=== PATIENT | female | born 1945 | race Caucasian/White ===

== ENCOUNTER 2020-02-09 10:49 | Inpatient (IN) | payer OTHER, MEDICARE, SELFPAY ==
[2020-02-09] VITALS (10 sets, daily range): BP systolic 94–167; BP diastolic 69–98; PULSE 101–144; RESP 16–26; TEMP 35.7–36.6; O2SAT 93–100; BMI 29.2
--- NOTE | ~2020-02-09 | CT_ITS ---
EXAMINATION: CTA chest PE protocol EXAM DATE: 02/09/2020 11:20 INDICATION: Pulmonary emboli. Shortness of breath. TECHNIQUE: Spiral CTA of the chest (pulmonary arteries) was performed with 100 cc Omnipaque 350 intr avenous contrast injection. Images were acquired during the pulmonary arterial phase. Coronal maxi mum intensity projection 3D-reconstructions were created by the technologist on dedicated workstation . Axial, coronal and sagittal reformatted images were reviewed. The dose-length product (DLP) for t his examination was 474.07 mGy-cm. The exposure was tailored according to patient size (auto mA exp osure control), and iterative reconstruction (ASIR) was used as additional dose reduction technique. There is no prior study for comparison. FINDINGS: There are bilateral interlobar and multiple segmental pulmonary emboli, overall moderate c lot burden with evidence of right heart strain. Small opacity in the upper middle lobe anterior segme nt which is peripheral wedge-shaped, consistent with small lung infarction. The lungs are otherwise c lear. No thoracic aortic dissection. There are no pleural or pericardial effusions. Tracheobronc hial tree is patent. There is no mediastinal, hilar or axillary lymphadenopathy. There is no pneu mothorax. Heart normal in size. No evidence of coronary arterial calcification. There are cholec ystectomy clips. There is mild thoracic spondylosis without osteoblastic or osteolytic lesions ident ified. IMPRESSION: 1. Scattered bilateral pulmonary emboli, moderate clot burden. 2. Small right upper lobe pulmonary infarction. I discussed pulmonary emboli with emergency room attending physician Maxi at 02/09/2020 11:23 CDT. Reviewed, dictated and finalized at location A.
--- NOTE | ~2020-02-09 | XR_ITS ---
EXAMINATION: XR chest 1V portable EXAM DATE: 02/09/2020 11:02 INDICATION: Left-sided chest pain, shortness of breath. History hypertension. TECHNIQUE: Portable AP frontal chest x-ray was obtained. Comparison is made to prior examination from 08/07/2016. FINDINGS: The lungs are clear. There are no pleural effusions. The cardiomediastinal silhouette is within normal limits. There is no pneumothorax suspected. Wide right acromioclavicular joint, could be postoperative. IMPRESSION: No acute cardiopulmonary findings. Reviewed, dictated and finalized at location A.
--- NOTE | ~2020-02-09 | US_ITS ---
EXAMINATION: US venous doppler [facility] EXAM DATE: 02/09/2020 12:43 INDICATION: Leg swelling. Pulmonary emboli. TECHNIQUE: Multiple grayscale, color flow and Doppler images of the left lower extremity deep venous system obtained and reviewed. Correlation is made to pulmonary CT earlier same date. FINDINGS: LEFT SIDE Common femoral: -------- Normal. Profunda femoral: ------- Normal. Femoral: Normal. Popliteal: Thrombosed. Posterior tibial: --------- Normal. Peroneal: Thrombosed. Gastrocnemius: Thrombosed. Soleus: Not visualized. Greater saphenous: ----- Normal. Lesser saphenous: ------ Not visualized. IMPRESSION: Positive for left popliteal, gastrocnemius, peroneal DVT. The finding of pulmonary emboli was already verbally conveyed as per documentation. Reviewed, dictated and finalized at location A. IMPRESSION: Positive for left popliteal, gastrocnemius, peroneal DVT. The finding of pulmonary emboli was already verbally conveyed as per documentat ion.
--- NOTE | 2020-02-09 10:55 | ECG_ITS ---
Measurements Intervals [place] Rate: 136 P: 96 HI: 183 QRS: 58 QRSD: 94 T: 76 QT: 363 QTc: 547 Interpretive Statements SINUS OR ECTOPIC ATRIAL TACHYCARDIA INCOMPLETE RIGHT BUNDLE BRANCH BLOCK DELAYED PRECORDIAL R/S TRANSITION MINIMAL Q WAVES- INFERIOR LEADS ST ABNORMALITY IN LATERAL LEADS- CONSIDER ISCHEMIA BASELINE ARTIFACT- II, III, AVL, AVF, V5 ABNORMAL ECG Electronically Signed On 02-09-2020 15:07:49 CDT by Narayan Black D.O.
[2020-02-09 11:10] LABS: Basophils Percent Auto 0.5 % (0.2-1.2); Eosinophils Absolute Auto 0.3 K/mm3 (0-0.3); Hematocrit 38.7 % (37.0-47.0); Immature Granulocyte Absolute 0.02 K/mm3 (0.00-0.031); Immature Granulocyte Percent A 0.3 % (0-0.5); Lymphocytes Absolute Auto 1.69 K/mm3 (0.9-3.2); Lymphocytes Percent Auto 23.2 % (18.3-44.2); Mean Corpuscular HGB Conc 33.6 g/dl (32-36); Mean Corpuscular Volume 86.2 fl (80-100); Mean Platelet Volume 9.9 fl (7.4-10.4); Monocytes Absolute Auto 0.4 K/mm3 (0.1-0.6); Monocytes Percent Auto 5.9 % (2.6-8.5); Neutrophils Absolute Auto 4.8 K/mm3 (1.3-6.7); Neutrophils Percent Auto 66.1 % (45.5-73.1); Platelet Count Result 170 k/mm3 (150-375); Red Blood Count 4.49 M/mm3 (4.2-5.4); Red Cell Distribution Width 13.7 % (11.5-14.5); White Blood Count 7.3 K/mm3 (4.5-10.0)
[2020-02-09 11:13] LABS: Estimated CRCL calculation 55 ml/min; Estimated Glomerular Filt Rate > 60
[2020-02-09 11:21] LABS: INR 1.2; Prothrombin Time 14.5 Seconds (11.1-14.7)
[2020-02-09 11:22] LABS: Partial Thromboplastin Time 28.8 SECONDS (22.3-36.8)
[2020-02-09 11:23] LABS: Alanine Aminotransferase 22 U/L (4-35); Albumin Level 4.7 g/dL (3.5-5.1); Alkaline Phosphatase 76 U/L (38-126); Anion Gap 11 mmol/L (8-16); Aspartate Amino Transferase 29 U/L (14-36); Bilirubin,Total 0.5 mg/dL (0.2-1.3); Blood Urea Nitrogen 22 mg/dL (7-17); Calcium 9.4 mg/dL (8.4-10.2); Carbon Dioxide 25 mmol/L (22-30); Chloride 105 mmol/L (98-107); Estimated CRCL calculation 61 ml/min; Estimated Glomerular Filt Rate > 60; Glucose 128 mg/dL (65-105); Sodium 141 mmol/L (137-145)
[2020-02-09] MEDS: HEPARIN SODIUM 5,000 UNITS/ML VIAL 5500 UNITS IV PUSH (11:31)
[2020-02-09 11:39] LABS: NT Pro B Type Natriuretic Pept 184 PG/ML (5-100); Troponin I 0.049 ng/mL (0.000-0.034)
[2020-02-09] MEDS: HEPARIN SOD/D5W 100 UNITS/ML 25,000 UNITS/250 ML BAG 13 UNITS IV CONT (11:44)
--- NOTE | 2020-02-09 11:49 | ED.GENADULT ---
HPI - General Adult General Chief complaint: Chest Pain <HELENA Rodarte Last Filed: 02/09/20 11:59> Stated complaint: sob/left chest pain <HELENA Rodarte Last Filed: 02/09/20 11:59> Time Seen by Provider: 02/09/20 10:52 <HELENA Rodarte Last Filed: 02/09/20 11:59> Source: patient <HELENA Rodarte Last Filed: 02/09/20 11:59> Mode of arrival: EMS <HELENA Rodarte Filed: 02/09/20 11:59> Limitations: no limitations <HELENA Rodarte Last Filed: 02/09/20 11:59> History of Present Illness HPI narrative: Patient is a 74-year-old female who presents to emergency department for evaluation of sudden onset of left-sided chest pain and dyspnea patient was bending over to tie her shoe when this began patient had set up developed a sudden dyspnea came by EMS with reported left-sided chest pain under the breast patient has been getting worked up for left leg pain and tightness by her primary care doctor denies similar occurrence injury trauma and mobility <HELENA Rodarte Last Filed: 02/09/20 11:59> Related Data Home medications: Home Medications Medication Instructions Recorded Confirmed celecoxib 200 mg capsule 200 mg PO BID 09/07/19 12/19/19 aspirin 325 mg tablet 325 mg PO DAILY 12/19/19 12/19/19 <HELENA Rodarte Last Filed: 02/09/20 11:59> Allergies/adverse reactions: Allergies Allergy/AdvReac Type Severity Reaction Status Date / Time sulindac Allergy Intermediate NAUSEA, Verified 02/09/20 11:09 SEVERE ABDOMINAL CRAMPS, DIARRHEA gabapentin Allergy Unknown RASH Verified 02/09/20 11:09 <HELENA Rodarte Last Filed: 02/09/20 11:59> Review of Systems Review of Systems: Narrative: 1 <HELENA Rodarte Last Filed: 02/09/20 11:59> All systems reviewed & are unremarkable except as noted in HPI and below <HELENA Rodarte Last Filed: 02/09/20 11:59> PMFSH Past Medical History Medical History: Medical History (Updated 02/09/20 @ 11:58 by Ez Caldera PA-C) Hypertension Left wrist fracture <Ez Caldera PA-C - Last Filed: 02/09/20 11:59> Family History Family History: Family History (Updated 12/05/15 @ 23:21 by DOCTOR UNKNOWN) Mother Carcinoma of colon Family history of malignant neoplasm of uterus Family history of pancreatic disease Patient's mother is Sibling Patient's brother is in good health Father Patient's father is <Ez Caldera PA-C - Last Filed: 02/09/20 11:59> Social History Social History: Social History Smoking status: Never smoker Alcohol intake: current <Ez Caldera PA-C - Last Filed: 02/09/20 11:59> Exam Narrative: Exam Narrative: GENERAL: Well-appearing, well-nourished, and in no acute distress. HEAD: Normocephalic, atraumatic. EYES: PERRLA and EOMI. ENT: Nares clear, no rhinorrhea or epistaxis. Mucous membranes moist. Oropharynx without tonsillar hypertrophy exudate or other lesions. CHEST: Clear to auscultation. No respiratory distress. No wheezes rales or rhonchi HEART: Tachycardic rate and regular rhythm. No murmur heard. Normal peripheral pulses. ABDOMEN: Soft, nontender, nondistended, EXTREMITIES: Normal range of motion. No edema. Tenderness and tightness of the left leg soft tissues are soft SKIN: Warm, dry, no rash. NEURO: No focal deficits. Alert and oriented x3. Neurovascularly intact. Capillary refill less than 2 seconds PSYCH: Normal mood and affect. <Ez Caldera PA-C - Last Filed: 02/09/20 11:59> Course Course Emergency Course: Patient in the room feeling much better at this time tachycardia has improved no longer dyspneic minimal discomfort was given heparin bolus and drip discussion was made with certified prosthetist who recommends
[2020-02-09 12:28] LABS: Thyroid Stimulating Hormone Reflex 0.864 uIU/mL (0.465-4.68)
--- NOTE | 2020-02-09 13:26 | ADMGEN ---
This patient, Iris Eddy, was admitted to IMU Room 214-01 at 1250. Patient/family oriented to hospital policies and general routines including ID bracelet, bed and alarms, visiting hours, pain management, procedures, bathroom and other care routines, personal items, smoking policy, room service/diet, and visiting hours. Valuables list has been completed. Information on how to activate the Rapid Response Team has been discussed. Patient/Family are encouraged to report perceived risks to care and to ask questions if they do not understand what they are told or what they should do.
--- NOTE | 2020-02-09 13:36 | ECHO_ITS ---
Patient Info Name: Iris Eddy Age: 74 years : 1945 Gender: Female Ht: 67 in Wt: 188 lbs BSA: 2.03 m2 HR: 115 bpm BP: 94 Technical Quality: Good Exam Date: 02/09/2020 2:03 PM Exam Location: [facility] Pulmonary Patient Status: Inpatient Admit Date: 02/09/2020 Staff Ordering Physician: Lyndsay Sheikh PA-C [employer] Supervisor: Megan Montes De Oca RDCS Attending Provider: Brett Felton MD Referring Physician: Kori DANGELO; Exam Type: CA echo doppler color flow Study Info Complete two-dimensional, color flow and Doppler transthoracic echocardiogram is performed. Summary 1. Complete two-dimensional, color flow and Doppler transthoracic echocardiogram is performed. 2. Right ventricular systolic function is reduced except for RV apex with typical Tolentino's sign consistent with pulmonary embolism. . 3. Right ventricular chamber dimension is moderately enlarged. 4. There is D shaped septum consistent with right ventricular pressure or volume overload. 5. Left ventricular systolic function is normal, estimated at 60-65%. 6. Unable to assess pulmonary artery pressure due to TR signal. 7. There is no pericardial effusion. Left Ventricle Left ventricular chamber dimension is normal. Left ventricular systolic function is normal, estimated at 60-65%. There is mildly increased left ventricular wall thickness. There is D shaped septum consistent with right ventricular pressure or volume overload. Right Ventricle Right ventricular chamber dimension is moderately enlarged. Right ventricular systolic function is reduced except for RV apex with typical Tolentino's sign consistent with pulmonary embolism. . Left Atria Left atrial chamber dimension is normal. Right Atria Right atrial chamber dimension is normal. Aortic Valve The aortic valve is trileaflet. There is no aortic valve sclerosis. There is no aortic valve stenosis. There is no aortic valve regurgitation. Pulmonic Valve The pulmonic valve is normal. There is no pulmonic valve stenosis. There is no pulmonic regurgitation. Mitral Valve The mitral valve has normal leaflets. There is no mitral valve stenosis. There is no mitral valve regurgitation. Tricuspid Valve The tricuspid valve leaflets are normal. There is no significant tricuspid valve stenosis. There is no tricuspid valve regurgitation. Unable to assess pulmonary artery pressure due to TR signal. Pericardium/Pleural The pericardium appears normal. There is no pericardial effusion. Inferior Vena Cava inferior vena cava not well visualized. Aorta The aortic root size at the sinus of Valsalva is normal. The prox ascending aorta size is normal. Left Ventricular Outflow Tract Name Value Normal LVOT 2D LVOT Diameter 1.9 cm LVOT Doppler LVOT Peak Velocity 72 cm/s LVOT Peak Gradient 2 mmHg LVOT Mean Gradient 1 mmHg LVOT VTI 13 cm LVOT VTI/AV VTI Ratio 0.7 LVOT Stroke Volume 36 ml L
--- NOTE | 2020-02-09 14:00 | PM.IMHP ---
H&P: HPI History of Present Illness Date/Time: 02/09/20 14:00 Chief complaint: Shortness of breath. Narrative: Iris Eddy is a very pleasant 74-year-old female with hypertension hyperlipidemia presented to the emergency department earlier this morning via EMS from home for evaluation of shortness of breath. Not long prior to arrival, while bending over to tie her shoe, she developed sudden shortness of breath to the point she was ?panting? when walking around the house. Her is a [employer] welder and they have an oxygen tank in the garage, so she went out there and used the oxygen with some improvement. She also had mild left-sided chest discomfort around the same time but that has resolved. After she felt better she went back inside but began feeling very short of breath again in the she called 911. She was found to have bilateral pulmonary emboli with moderate clot burden and is being admitted in this setting. With further questioning she has had issues off and on with lower extremity swelling for nearly a months time. Initially that was attributed to an increase in her amlodipine, and when it was decreased again her swelling improved in the right leg however persisted in the left leg. For the past week or so she has had some discomfort in the left calf and last night was extremely tight and she thought that she felt a hard knot in the calf. She has no prior history of DVT or PE. She did travel to [place] last week via car for her grandchild's yazdanism but other than that she has not had any long distance travel. Prior to that she flew to [facility] in October of this year, and at that time she had an accident in which she broke her left elbow, also sustaining a left orbital fracture, both requiring surgery. Since that time she has not been as active as usual, but she is certainly not sedentary. At the time my evaluation she is sitting up eating lunch and reports feeling okay. She has not significantly short of breath and she denies chest pain, pleuritic pain, palpitations, and racing heart. No nausea, vomiting, or diaphoresis. She denies lightheadedness and dizziness. No syncope or near syncope. She has not had any unintentional weight loss. No known history of malignancy. Her last colonoscopy was about Prieb years ago and she has never had colon polyps. She has never had an abnormal mammogram, with most recent being about 1 year ago. She is not on hormones. Review of Systems Review of Systems: Narrative: Twelve systems were reviewed with pertinent positives and negatives as per HPI. Weight has remained stable. No recent cold or flu symptoms. No sick contacts. She has been on Celebrex for a couple of years due to chronic low back discomfort. Except as documented, all other systems were reviewed and are negative. [facility] Past Medical History Medical History (Updated 02/09/20 @ 20:58 by Lyndsay Sheikh PA-C) Anxiety Gallstone pancreatitis (~2012) Hyperlipidemia Hypertension Left wrist fracture (~10/2019) Surgical History Surgical History (Updated 02/09/20 @ 20:54 by Lyndsay Sheikh PA-C) History of appendectomy History of cardiac catheterization (~09/2012) Clean coronary arteries. History of facial surgery (~10/2019) Repair of left orbital fracture. History of hysterectomy (~1984) History of laparoscopic cholecystectomy (~01/2013) History of lumbar discectomy (~10/2013) History of orthopedic surgery Left Achilles tendon repair. History of shoulder surgery History of surgery on arm (~10/2019) ORIF of the left radial head with nerve transposition. History of tonsillectomy Family History Family History Mother Carcinoma of colon Family history of malignant neoplasm of uterus Family history of pancreatic disease Patient's mother is Sibling Patient's brother is in good health Father Patient's father is Social
[2020-02-09 14:24] LABS: Troponin I 0.402 ng/mL (0.000-0.034)
[2020-02-09 17:54] LABS: Partial Thromboplastin Time 186.2 SECONDS (22.3-36.8)
[2020-02-09 18:11] LABS: Troponin I 0.565 ng/mL (0.000-0.034)
--- NOTE | 2020-02-09 21:07 | PC.NURSE ---
REPORT CALLED TO DEMETRIUS RIVAS AT [facility]. WILL ARRANGE TRANSPORTATION FOR TRANSFER.
--- NOTE | 2020-02-09 21:33 | PC.NURSE ---
Patient transfer ordered by cardiology Dr. Esquivel for PE with moderate clot burden and right upper lobe pulmonary infarct. MD unavailable to sign paperwork. Telephone order received to process transfer.
[2020-02-09] MEDS: PARoxetine 20 MG TABLET PO (21:53)
[2020-02-10] VITALS: BP 135/83; PULSE 100; PULSE 93; RESP 16; TEMP 36.4; O2SAT 100
[2020-02-10 01:26] LABS: Partial Thromboplastin Time 100.1 SECONDS (22.3-36.8)
[2020-02-10 02:00] VITALS: PULSE 92
--- NOTE | 2020-02-10 02:38 | PC.NURSE ---
[facility] HERE TO TRANSFER PATIENT TO [facility]. UPDATED REPORT CALLED TO DEMETRIUS RIVAS. [phone] BELONGINGS LIST VERIFIED WITH PATIENT.
--- NOTE | 2020-03-24 17:03 | PM.DS ---
DS: Admitting Diagnosis Admitting Diagnosis Admitting Diagnosis: Pulmonary embolism, Hypoxemia DS: Discharge Diagnosis Discharge Diagnosis (1) Bilateral pulmonary embolism: Code(s): I26.99 - Other pulmonary embolism without acute cor pulmonale Status: Acute (2) Left leg DVT: Code(s): I82.402 - Acute embolism and thrombosis of unspecified deep veins of left lower extremity Status: Acute (3) Hypertension: Code(s): I10 - Essential (primary) hypertension Status: Acute (4) Hyperlipidemia: Code(s): E78.5 - Hyperlipidemia, unspecified Status: Acute (5) Anxiety: Code(s): F41.9 - Anxiety disorder, unspecified Status: Acute (6) Pulmonary infarction: Code(s): I26.99 - Other pulmonary embolism without acute cor pulmonale Status: Acute (7) Elevated troponin: Code(s): R77.8 - Other specified abnormalities of plasma proteins Status: Acute DS: Summary Hospital Course Reason for hospitalization: Chief complaint: Shortness of breath. Narrative: Iris Eddy is a very pleasant 74-year-old female with hypertension hyperlipidemia presented to the emergency department earlier this morning via EMS from home for evaluation of shortness of breath. Not long prior to arrival, while bending over to tie her shoe, she developed sudden shortness of breath to the point she was ?panting? when walking around the house. Her is a welder explosion and they have an oxygen tank in the garage, so she went out there and used the oxygen with some improvement. She also had mild left-sided chest discomfort around the same time but that has resolved. After she felt better she went back inside but began feeling very short of breath again in the she called 911. She was found to have bilateral pulmonary emboli with moderate clot burden and is being admitted in this setting. With further questioning she has had issues off and on with lower extremity swelling for nearly a months time. Initially that was attributed to an increase in her amlodipine, and when it was decreased again her swelling improved in the right leg however persisted in the left leg. For the past week or so she has had some discomfort in the left calf and last night was extremely tight and she thought that she felt a hard knot in the calf. She has no prior history of DVT or PE. She did travel to [place] last week via car for her grandchild's christian but other than that she has not had any long distance travel. Prior to that she flew to [facility] in October of this year, and at that time she had an accident in which she broke her left elbow, also sustaining a left orbital fracture, both requiring surgery. Since that time she has not been as active as usual, but she is certainly not sedentary. At the time my evaluation she is sitting up eating lunch and reports feeling okay. She has not significantly short of breath and she denies chest pain, pleuritic pain, palpitations, and racing heart. No nausea, vomiting, or diaphoresis. She denies lightheadedness and dizziness. No syncope or near syncope. She has not had any unintentional weight loss. No known history of malignancy. Her last colonoscopy was about Prieb years ago and she has never had colon polyps. She has never had an abnormal mammogram, with most recent being about 1 year ago. She is not on hormones. Hospital Course: patient is 74-year-old female came to emergency department with sudden onset of chest pain and shortness of breath suspected the patient may have a PE, CTA of chest showed 1. Scattered bilateral pulmonary emboli, moderate clot burden. 2. Small right upper lobe pulmonary infarction. patient also found to have Positive for left popliteal, gastrocnemius, peroneal DVT. patient was started on heparin for anticoagulation, I am not sure exactly what happened but patient was transferred to [facility] for vascular surgeon consult. Status at [facility]
--- NOTE | 2020-04-07 09:17 | PM.TDS ---
Transfer Discharge Sum: Prov Provider Date of admission: 02/09/20 13:23 Primary care physician: Placido Moore DO Admitting clinician: Brett Felton MD Consults: 02/09/20 Consult to Physician Routine Comment: Consulting Provider: Viktor Bates clerk of works/MD group to consult: Dr. Ornelas Reason for consultation: elevated troponin Has provider been notified: Yes DS: Admitting Diagnosis Admitting Diagnosis Admitting Diagnosis: Pulmonary embolism, Hypoxemia DS: Discharge Diagnosis Discharge Diagnosis (1) Bilateral pulmonary embolism: Code(s): I26.99 - Other pulmonary embolism without acute cor pulmonale Status: Acute (2) Left leg DVT: Code(s): I82.402 - Acute embolism and thrombosis of unspecified deep veins of left lower extremity Status: Acute Assessment and Plan: Patient with PE and DVT, patient was transferred to [facility] Transfer Discharge Sum: Med Medications Active and Home Medications: Home Medications celecoxib 200 mg capsule 200 mg PO BID 09/07/19 [History Confirmed 02/20/20] rosuvastatin 20 mg tablet 20 mg PO DAILY #90 tablet 10/29/19 [Rx Confirmed 02/20/20] lisinopril 30 mg tablet 30 mg PO DAILY #90 tablet 01/22/20 [Rx Confirmed 02/20/20] amlodipine 5 mg PO HS 02/09/20 [History Confirmed 02/20/20] paroxetine HCl 20 mg PO HS 02/09/20 [History Confirmed 02/20/20] rivaroxaban 15 mg tablet 15 mg PO BID tablet 02/20/20 [History Confirmed 02/20/20] rivaroxaban 20 mg tablet 20 mg PO DAILY 02/20/20 [History Confirmed 02/20/20] pantoprazole 20 mg tablet,delayed release 20 mg PO QAM #90 tablet 03/06/20 [Rx] Transfer Discharge Sum: Hosp Hospital Course Hospital course: Iris Eddy is a 74 year old female Chief complaint: Shortness of breath. Narrative: Iris Eddy is a very pleasant 74-year-old female with hypertension hyperlipidemia presented to the emergency department earlier this morning via EMS from home for evaluation of shortness of breath. Not long prior to arrival, while bending over to tie her shoe, she developed sudden shortness of breath to the point she was ?panting? when walking around the house. Her is a lead welder and they have an oxygen tank in the garage, so she went out there and used the oxygen with some improvement. She also had mild left-sided chest discomfort around the same time but that has resolved. After she felt better she went back inside but began feeling very short of breath again in the she called 911. She was found to have bilateral pulmonary emboli with moderate clot burden and is being admitted in this setting. With further questioning she has had issues off and on with lower extremity swelling for nearly a months time. Initially that was attributed to an increase in her amlodipine, and when it was decreased again her swelling improved in the right leg however persisted in the left leg. For the past week or so she has had some discomfort in the left calf and last night was extremely tight and she thought that she felt a hard knot in the calf. She has no prior history of DVT or PE. She did travel to [place] last week via car for her grandchild's synagogue but other than that she has not had any long distance travel. Prior to that she flew to [facility] in October of this year, and at that time she had an accident in which she broke her left elbow, also sustaining a left orbital fracture, both requiring surgery. Since that time she has not been as active as usual, but she is certainly not sedentary. At the time my evaluation she is sitting up eating lunch and reports feeling okay. She has not significantly short of breath and she denies chest pain, pleuritic pain, palpitations, and racing heart. No nausea, vomiting, or diaphoresis. She denies lightheadedness and dizziness. No syncope or near syncope. She has not had any unintentional weight loss. No known history of malignancy. Her last colonoscopy was about P
== END 2020-02-10 02:35 | disposition short-term general hospital (02) | DRG 176 ==
LOC: ANHED 11:59 → ANHIMU 19:22
PROVIDERS: Emergency Medicine Emergency Medical Services; Physician Assistant; Admitting Provider Family Medicine; Emergency Provider Emergency Medicine; PCP Internal Medicine; Visit Provider Internal Medicine
DX: I26.99 Other pulmonary embolism without acute cor pulmonale (principal); I82.432 Acute embolism and thrombosis of left popliteal vein; I82.452 Acute embolism and thrombosis of left peroneal vein; I82.462 Acute embolism and thrombosis of left calf muscular vein; I10 Essential (primary) hypertension; E78.5 Hyperlipidemia, unspecified; F41.9 Anxiety disorder, unspecified; R79.89 Other specified abnormal findings of blood chemistry; R09.02 Hypoxemia; Z90.710 Acquired absence of both cervix and uterus; Z87.891 Personal history of nicotine dependence
CPT/HCPCS: 36415; 71045; 71275; 80053; 83880; 84443; 84484; 85025; 85610; 85730; 93005; 93306; 93971; 96365; 99291; A9270; G0378; J1644; Q9967

== ENCOUNTER → 2021-05-21 08:16 | Outpatient (CLI) | payer OTHER, SELFPAY ==
[2021-05-21 14:04] LABS: Influenza A QL RT-PCR Negative (Negative); Influenza B QL RT-PCR Negative (Negative); SARS-CoV-2 RNA PCR Negative
== END ==
PROVIDERS: PCP Internal Medicine; Visit Provider Internal Medicine
DX: R68.89 Other general symptoms and signs (principal); Z20.822 Contact with and (suspected) exposure to COVID-19
CPT/HCPCS: 87502; C9803; U0003; U0005

== ENCOUNTER → 2021-06-05 02:57 | Outpatient (CLI) | payer OTHER, SELFPAY ==
[2021-06-05 13:15] LABS: Influenza A QL RT-PCR Negative (Negative); Influenza B QL RT-PCR Negative (Negative); SARS-CoV-2 RNA PCR Negative
== END ==
PROVIDERS: PCP Internal Medicine; Visit Provider Nurse Practitioner
DX: R68.89 Other general symptoms and signs (principal); Z20.822 Contact with and (suspected) exposure to COVID-19
CPT/HCPCS: 87502; C9803; U0003; U0005

== ENCOUNTER → 2022-02-08 00:04 | Outpatient (CLI) | payer OTHER, SELFPAY ==
[2022-02-08 11:55] LABS: SARS-CoV-2 RNA PCR Negative
== END ==
PROVIDERS: PCP Internal Medicine; Visit Provider Internal Medicine
DX: Z20.822 Contact with and (suspected) exposure to COVID-19 (principal); Z01.818 Encounter for other preprocedural examination
CPT/HCPCS: C9803; U0003; U0005

== ENCOUNTER 2023-07-21 11:55 | Outpatient (CLI) | payer OTHER, SELFPAY ==
--- NOTE | ~2023-07-21 | XR_ITS ---
Clinical Indication: Abnormal kidney function PA and lateral views of the chest: Comparison: 02/09/2020 Findings: The lungs are clear, without evidence of focal consolidation or pleural effusion. Cardiome diastinal silhouette is within normal limits. Bones and soft tissues are unremarkable. Impression: Normal chest. Reviewed, dictated and finalized at location . Impression: Normal chest.
[2023-07-21 12:17] LABS: Hematocrit 39.2 % (37.0-47.0); Hemoglobin 12.5 g/dL (12.0-15.0); Mean Corpuscular HGB Conc 31.9 g/dl (32-36); Mean Corpuscular Hemoglobin 28.2 pg (26-34); Mean Corpuscular Volume 88.3 fl (80-100); Red Blood Count 4.44 M/mm3 (4.2-5.4); Red Cell Distribution Width 13.6 % (11.5-14.5); White Blood Count 6.2 K/mm3 (4.5-10.0)
[2023-07-21 12:18] LABS: Mean Platelet Volume 10.7 fl (7.4-10.4); Platelet Count Result 171 k/mm3 (150-375)
[2023-07-21 12:25] LABS: Alanine Aminotransferase 17 U/L (6-35); Albumin Level 4.5 g/dL (3.5-5.1); Alkaline Phosphatase 74 U/L (38-126); Anion Gap 6 mmol/L (8-16); Aspartate Amino Transferase 26 U/L (14-36); Bilirubin,Total 0.6 mg/dL (0.2-1.3); Blood Urea Nitrogen 14 mg/dL (7-17); Calcium 9.5 mg/dL (8.4-10.2); Carbon Dioxide 30 mmol/L (22-30); Chloride 104 mmol/L (98-107); Estimated Glomerular Filt Rate 44; Glucose 109 mg/dL (65-110); Potassium 4.5 mmol/L (3.4-5.0); Sodium 140 mmol/L (137-145)
[2023-07-21 12:31] LABS: Hemoglobin A1C 5.8 % (<5.7)
== END 2023-07-21 11:56 | disposition home or self-care (01) ==
PROVIDERS: PCP Family Medicine; Visit Provider Family Medicine
DX: R94.4 Abnormal results of kidney function studies (principal); E66.3 Overweight; I10 Essential (primary) hypertension; Z91.09 Other allergy status, other than to drugs and biological substances; K22.4 Dyskinesia of esophagus; E78.5 Hyperlipidemia, unspecified; F41.9 Anxiety disorder, unspecified; R73.03 Prediabetes
CPT/HCPCS: 36415; 71046; 80053; 83036; 85027

== ENCOUNTER 2024-01-03 08:39 | Outpatient (CLI) | payer OTHER, SELFPAY ==
--- NOTE | ~2024-01-03 | DEXA_ITS ---
Bone Density Report Name: ORVILLE FERRELL Age: 78 Sex: Female Ethnicity: White Date of : 1945 Indication: postmenopausal; screening for osteoporosis; height loss; hysterectomy; Referring Provider: ROBERT SHEPHERD Study: Bone densitometry was performed. Exam Date: January 03, 2024 Accession number: [id number] Bone Density: Region BMD T-score Z-score Classification AP Spine(L1-L4) 1.321 2.5 5.0 Normal Femoral Neck (Left) 0.746 -0.9 1.3 Normal Total Hip (Left) 1.021 0.7 2.6 Normal Femoral Neck (Right) 0.766 -0.7 1.4 Normal Total Hip (Right) 0.899 -0.4 1.6 Normal Total Hip Mean 0.960 0.2 2.1 Normal World Health Organization criteria for BMD impression classify patients as: Normal (T-score at or above -1.0), Osteopenia (T-score between -1.0 and -2.5), or Osteoporosis (T-score at or below -2.5). 10-year Fracture Risk: FRAX not reported because: All T-scores for Spine Total, Hip Total, Femoral Neck at or above -1.0 Clinical Information Provided by Patient: Has the following medical conditions: Hysterectomy Patient maximum height was 67 Menopause Age: 46 Drinks caffeinated beverages Onset of menses at age 13 Number of children 3 Impression: The patient has normal bone mass. Discussion: BONE DENSITY IS ABOVE THE MINIMUM DESIRABLE LEVEL AT ALL SKELETAL SITES TESTED. This patient?s bone mineral density is above the minimum desirable level (T-score -1.0 or better) at all sites measured. The patient should follow a healthful lifestyle (good nutrition with adequate calcium and vitamin D, and appropriate weight-bearing exercise). Follow-Up: Consider repeating this study in 5 years or sooner if there is some new clinical indication. Reported by: ADIN on 01/03/2024 9:13:00 AM. Reviewed, dictated and finalized at location [facility] [facility]
== END 2024-01-03 08:40 | disposition home or self-care (01) ==
LOC: ANHIMG 08:39
PROVIDERS: PCP Family Medicine; Visit Provider Family Medicine
DX: Z13.820 Encounter for screening for osteoporosis (principal); Z78.0 Asymptomatic menopausal state
CPT/HCPCS: 77080